=== PATIENT | male | born 1955 | race Caucasian/White ===

== ENCOUNTER 2018-09-28 16:31 | Inpatient (IN) | payer MEDICARE, MEDICAID ==
--- NOTE | 2018-09-28 16:46 | ED Physician Chart ---
ED Chief Complaint/HPI - Patient Information Date Seen:: 09/28/18 Time Seen:: 16:25 Chief Complaint:: Dysphagia History of Present Illness:: onset x 3 days of dysphagia; no report of trauma, H/As, S/T, neck pain, C/P, cough, SOB, Abd. Pain, A/N/V/D/C, fever, chills, or urinary s/s; pt presents for G-Tube Insertion/Placement Historian:: Patient, EMS Review:: Nurse's Note Reviewed, Old Chart Reviewed, EMS run form Reviewed ED Review of Systems - Review of Systems General/Constitutional: No fever, No chills, No weight loss, Weakness, No diaphoresis, No edema, No loss of appetite Skin: No skin lesions, No rash, No bruising Head: No headache, No light-headedness Eyes: No loss of vision, No pain, No diplopia ENT: No earache, No nasal drainage, No sore throat, No tinnitus Neck: No neck pain, No swelling, No thyromegaly, No stiffness, No mass noted Cardio Vascular: No chest pain, No palpitations, No PND, No orthopnea, No edema Pulmonary: No SOB, No cough, No sputum, No wheezing GI: No nausea, No vomiting, No diarrhea, No pain, No melena, No hematochezia, No constipation, No hematemesis G/U: No dysuria, No frequency, No hematuria, No nacturia Musculoskeletal: No bone or joint pain, No back pain, No muscle pain Endocrine: No polyuria, No polydipsia Psychiatric: No prior psych history, No depression, No anxiety, No suicidal ideation, No homicidal ideation, No auditory hallucination, No visual hallucination Hematopoietic: No bruising, No lymphadenopathy Allergic/Immuno: No urticaria, No angioedema Neurological: No syncope, No focal symptoms, Weakness, No paresthesia, No headache, No seizure, No dizziness, No confusion, No vertigo ED Past Medical History - Past Medical History Obtainable: Yes Past Medical History: HTN, CAD, CHF, Asthma/COPD, CVA/TIA, Dyslipidemia, PUD/ GERD, Arthritis Family History: HTN Social History: Non Smoker, No Alcohol, No Drug Use, Single, Care Facility Surgical History: None Psychiatricy History: None Medication: Reviewed Family Medical History - Family Member Mother History Unknown: Yes ED Physical Exam - Physical Examination General/Constitutional: Awake, Well-developed, well-nourished, Alert, No distress, GCS 15, Non-toxic appearing, Ambulatory Head: Atraumatic Eyes: Lids, conjuctiva normal, PERRL, EOMI Skin: Nl inspection, No rash, No skin lesions, No ecchymosis, Well hydrated, No lymphadenopathy ENMT: External ears, nose nl, TM canals nl, Nasal exam nl, Lips, teeth, gums nl , Oropharynx nl, Tonsils nl Neck: Nontender, Full ROM w/o pain, No JVD, No nuchal rigidity, No bruit, No mass, No stridor Respiratory: Nl effort/Exclusion, Clear to Auscultation, No Wheeze/Rhonchi/Rales Cardio Vascular: RRR, No murmur, gallop, rubs, NL S1 S2, Carotid/Femoral/Distal pulses equal bilaterally GI: No tenderness/rebounding/guarding, No organomegaly, No hernia, Normal BS's, Nondistended, No mass/bruits, No McBurney tenderness : No CVA tenderness Extremities: No tenderness or effusion, Full ROM, normal strength in all extremities, No edema, Normal digits & nails Neuro/Psych: Alert/oriented, DTR's symmetric, Normal sensory exam, Normal motor strength, Judgement/insight normal, Mood normal, Normal gait Other Neuro/Psych comments:: + Quadriplegia Misc: Normal back, No paraspinal tenderness ED Labs/Radiology/EKG Results - Lab Results Comments:: Reviewed - Radiology Results Comments:: CXR: CM; NAD - EKG Interpretations EKG Time:: 17:40 Rate & Rhythm: 81; NSR Comments:: T- Wave Inversions; non-specific st-t changes ED Septic Shock - . Is Septic Shock (SBP<90, OR Lactate>4 mmol\L) present?: No ED Reassessment (Disposition) - Reassessment Reassessment Condition:: Improved - Diagnosis Diagnosis:: Dx: Dysphagia; Leukocytosis; Sepsis - Aftercare/Follow up Instructions Aftercare/Follow-Up Instructions:: Counseled pt regarding lab results/diagnosis & need follow up, Counseled pt & family regarding lab results/diagnosis & need follow up - Patient Disposition Discharge/Transfer:: Acute Care w/in this hosp Accepting Physician:: Dr. Hagen Time Called:: 1829 Time Responded:: 18:30 Admitted to:: Med/Surg Spoke to:: Dr. Hagen Admitting Medical Physician:: Dr. Hagen Condition at Disposition:: Stable, Improved
[2018-09-28] MEDS ORDERED: Sodium Chloride 0.9% 1,000 ML IV ONE (17:35)
[2018-09-28 18:08] LABS: % BASOPHILS 0.4 % (0.0-2.0); % EOSINOPHILS 2.4 % (0.0-5.0); % LYMPHOCYTES 15.4 % (20.0-50.0); % NEUTROPHILS 72.8 % (40.0-80.0); BASOPHILE ABSOLUTE 0.1 Th/cumm (0-0.2); EOSINOPHILE ABSOLUTE 0.4 Th/cmm (0.1-0.4); HEMATOCRIT 40.8 % (41.0-60); HEMOGLOBIN 13.6 gm/dL (12-16); LYMPHOCYTE ABSOLUTE 2.3 Th/cmm (1.5-3.0); MEAN CELL VOLUME 85.4 fl (80-99); MEAN CORPUSCULAR HEMOGLOBIN 28.5 pg (26.0-30.0); MEAN CORPUSCULAR HGB CONC 33.4 pg (28.0-36.0); MEAN PLATELET VOLUME 7.4 fl; MONOCYTE ABSOLUTE 1.4 Th/cmm (0.3-1.0); PLATELET COUNT 322 Th/cmm (150-400); RED BLOOD COUNT 4.77 Mil/cmm (4.30-5.70); RED CELL DISTRIBUTION WIDTH 12.3 % (11.5-20.0); WHITE BLOOD COUNT 15.2 Th/cmm (4.8-10.8)
[2018-09-28 18:26] LABS: INR 0.99 (0.5-1.4); PROTHROMBIN TIME (TEST) 10.3 SECONDS (9.5-11.5)
[2018-09-28 18:27] LABS: ALBUMIN 3.8 gm/dL (4.2-5.5); ALKALINE PHOSPHATASE 142 U/L (34-104); AMYLASE SERUM 26 U/L (29-103); ANION GAP 15.8 (7.0-16.0); BILIRUBIN,TOTAL 0.3 mg/dL (0.3-1.0); BUN - UREA NITROGEN 7 mg/dL (7-25); CALCIUM SERUM 9.6 mg/dL (8.6-10.3); CARBON DIOXIDE 22.7 mEq/L (21.0-31.0); CHLORIDE 105 mEq/L (98-107); CHOLESTEROL 159 mg/dL (<200); CREATININE - SERUM 0.6 mg/dL (0.7-1.3); CREATININE KINASE 45 U/L (30-223); GFR AFRICAN-AMERICAN > 60.0 ml/min (>90); GFR NON AFRICAN-AMERICAN > 60.0 ml/min; GLUCOSE 96 mg/dL (70-105); HDL -HIGH DENSITY LIPOPROTEIN 37 mg/dL (23-92); LIPASE 17 U/L (11-82); POTASSIUM SERUM 3.5 mEq/L (3.5-5.1); SGOT 19 U/L (13-39); SGPT/ALT 19 U/L (7-52); SODIUM SERUM 140 mEq/L (136-145); TOTAL PROTEIN,SERUM 7.8 gm/dL (6.0-8.3); TRIGLYCERIDES 273 mg/dL (<150)
[2018-09-28] MEDS ORDERED: Albuterol Nebulizer 2.5mg/3mL HHN PRN (19:02)
[2018-09-28] MEDS ORDERED: Maalox 30 mL Cup PO PRN (19:02)
[2018-09-28] MEDS ORDERED: Ipratropium Neb 0.5 mg/2.5 mL UD HHN PRN (19:02)
[2018-09-28] MEDS ORDERED: cefTRIAXone 1 GM in Sodium Chloride 0.9% 50 ML IV ONE (19:15)
[2018-09-28] MEDS ORDERED: Non-Formulary Item 1 EA (Acetaminophen [Tylenol] 650 MG) PO PRN (19:27)
[2018-09-28] MEDS: INSULIN ASPART, RECOMBINANT 100 UNITS/ML SUBQ SCH (21:00)
[2018-09-28] MEDS: D5-0.9%NS 1,000 ML IV SCH (21:05)
[2018-09-28 21:54] VITALS: BP 149/69
[2018-09-28] MEDS: Levofloxacin 500mg/100mL 500 MG/100 ML BAG IV SCH (22:03)
[2018-09-29] MEDS: Hydrocodone/APAP 5mg/325mg Tab PO PRN ×3 (05:22→16:47)
[2018-09-29] MEDS: INSULIN ASPART, RECOMBINANT 100 UNITS/ML SUBQ SCH ×4 (08:04→20:31)
--- NOTE | 2018-09-29 08:55 | Diagnostic Imaging Report ---
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 Increased left basal lung markings are noted. There is no focal consolidation or pleural effusions The heart is normal in size. Degenerative changes of the spine are noted. IMPRESSION: Increased left basal lung markings which may be due to atelectasis, however, faint infiltrate cannot be excluded. Clinical correlation is needed.
[2018-09-29] MEDS: Multivitamin w/ Minerals Tab PO SCH (08:58)
[2018-09-29] MEDS: Polyvinyl Alcohol Ophth Soln 15 mL Bottle EACH EYE SCH (09:37)
[2018-09-29] MEDS: D5-0.9%NS 1,000 ML IV SCH (11:13)
--- NOTE | 2018-09-29 17:12 | History and Physical ---
History of Present Illness - HPI Chief Complaint: dysphagia HPI: This is a 63-year old male who is a [facility] resident who has a 1 day history of difficulty swallowing. Vital Signs: Last Vital Signs Temp 97.0 F 09/29/18 15:24 Pulse 71 09/29/18 15:24 Resp 18 09/29/18 15:24 BP 118/58 09/29/18 15:24 Pulse Ox 96 09/29/18 15:24 Past Medical History Other History: HTN, CAD, CHF, Asthma/COPD, CVA/TIA, Dyslipidemia, PUD/GERD, Arthritis Family Medical History - Family Member Mother History Unknown: Yes Social History Smoke: No Alcohol: None Drugs: None Lives: Snf - Medications Home Medications: Home Medication Medication Instructions Recorded Type Acetaminophen [Tylenol] 650 mg PO Q6H PRN 09/28/18 History Benazepril HCl 5 mg PO DAILY 09/28/18 History Dextran 70/Hypromellose 1 each OP BID 09/28/18 History [Artificial Tears] Docusate Sodium [Colace] 100 mg PO DAILY 09/28/18 History Glipizide 10 mg PO DAILY 09/28/18 History Hydrocodone/APAP 5mg/325mg [[place] 1 tab PO Q8H PRN 09/28/18 History 5mg/325mg] Multivitamin w/ Minerals 1 tab PO DAILY 09/28/18 History [Theragran M] Niacin 500 mg PO HS 09/28/18 History Phenytoin Sodium Extended 300 mg PO BID 09/28/18 History [Extended Phenytoin Sodium] Pregabalin [Lyrica] 50 mg PO TID 09/28/18 History Simvastatin [Zocor] 40 mg PO HS 09/28/18 History fentaNYL 25 mcg/hr [Duragesic 25 25 mcg TD Q72HR 09/28/18 History mcg/hr Tdm Patch] metFORMIN [Glucophage] 850 mg PO BID 09/28/18 History - Allergies Allergies/Adverse Reactions: Allergies Allergy/AdvReac Type Severity Reaction Status Date / Time No Known Allergies Allergy Verified 09/28/18 16:41 Review of Systems - Review of Systems Constitutional: Report: No Significant Eyes: Report: No Significant Respiratory: Report: No Significant Cardiovascular: Report: No Significant Gastrointestinal: Report: No Significant Neurological: Report: No Significant Physical Exam - Physical Exam HEENT: Report: Ears Nose Throat within normal limits Neck: Report: Within normal limits Cardiovascular Systems: Report: +s1/s2 noted, Regular, Rate and Rhythm Respiratory: Report: Breath Sounds are within normal limits, Clear to Auscultation of lung boland Abdomen: Report: Non-tender to palpation Extremities: Report: Non-tender to palpation. Skin: Report: Color of skin is within normal limits, Warm, Dry Neuro/Psych: Report: Mood affect is within normal limits, A+Ox3 - Lab Results All Lab Results last 24 hours: Laboratory Results - last 24 hr 09/28/18 09/28/18 09/28/18 17:58 17:58 17:58 WBC 15.2 H RBC 4.77 Hgb 13.6 Hct 40.8 L MCV 85.4 MCH 28.5 MCHC Differential 33.4 RDW 12.3 Plt Count 322 MPV 7.4 Neutrophils % 72.8 Lymphocytes % 15.4 L Monocytes % 9.0 Eosinophils % 2.4 Basophils % 0.4 PT 10.3 INR 0.99 Sodium 140 Potassium 3.5 Chloride 105 Carbon Dioxide 22.7 Anion Gap 15.8 BUN 7 Creatinine 0.6 L Est GFR ( Amer) > 60.0 Est GFR (Non-Af Amer) > 60.0 BUN/Creatinine Ratio 11.7 Glucose 96 POC Glucose Whole Bld Lactic Acid Calcium 9.6 Total Bilirubin 0.3 AST 19 ALT 19 Alkaline Phosphatase 142 H Creatine Kinase 45 Troponin I B-Natriuretic Peptide Total Protein 7.8 Albumin 3.8 L Globulin 4.0 Albumin/Globulin Ratio 1.0 Triglycerides 273 H Cholesterol 159 LDL Cholesterol Direct 89 HDL Cholesterol 37 Amylase 26 L Lipase 17 09/28/1818 09/28/18 17:58 17:58 17:58 WBC RBC Hgb Hct MCV MCH MCHC Differential RDW Plt Count MPV Neutrophils % Lymphocytes % Monocytes % Eosinophils % Basophils % PT INR Sodium Potassium Chloride Carbon Dioxide Anion Gap BUN Creatinine Est GFR ( Amer) Est GFR (Non-Af Amer) BUN/Creatinine Ratio Glucose POC Glucose Whole Bld Lactic Acid 0.92 Calcium Total Bilirubin AST ALT Alkaline Phosphatase Creatine Kinase Troponin I 0.01 B-Natriuretic Peptide 33.3 Total Protein Albumin Globulin Albumin/Globulin Ratio Triglycerides Cholesterol LDL Cholesterol Direct HDL Cholesterol Amylase Lipase 09/28/18 09/29/18 09/29/18 20:27 07:36 11:15 WBC RBC Hgb Hct MCV MCH MCHC Differential RDW Plt Count MPV Neutrophils % Lymphocytes % Monocytes % Eosinophils % Basophils % PT INR Sodium Potassium Chloride Carbon Dioxide Anion Gap BUN Creatinine Est GFR ( Amer) Est GFR (Non-Af Amer) BUN/Creatinine Ratio Glucose POC Glucose 101 115 H 144 H Whole Bld Lactic Acid Calcium Total Bilirubin AST ALT Alkaline Phosphatase Creatine Kinase Troponin I B-Natriuretic Peptide Total Protein Albumin Globulin Albumin/Globulin Ratio Triglycerides Cholesterol LDL Cholesterol Direct HDL Cholesterol Amylase Lipase 09/29/18 16:57 WBC RBC Hgb Hct MCV MCH MCHC Differential RDW Plt Count MPV Neutrophils % Lymphocytes % Monocytes % Eosinophils % Basophils % PT INR Sodium Potassium Chloride Carbon Dioxide Anion Gap BUN Creatinine Est GFR ( Amer) Est GFR (Non-Af Amer) BUN/Creatinine Ratio Glucose POC Glucose 117 H Whole Bld Lactic Acid Calcium Total Bilirubin AST ALT Alkaline Phosphatase Creatine Kinase Troponin I B-Natriuretic Peptide Total Protein Albumin Globulin Albumin/Globulin Ratio Triglycerides Cholesterol LDL Cholesterol Direct HDL Cholesterol Amylase Lipase - Assessment Assessment: Current Active Problems Problem Status Onset POOR ORAL INTAKE AND CHRONIC LEG PAIN Acute leukocytosis failure to thrive leukocytosis HTN CAD CHF asthma history of cva Dyslipidemia GERD Arthritis - Plan Plan: gi consult empiric ivabx ivf for hydration follow up labs in am aspiration precautions continue current plan of care
--- NOTE | 2018-09-29 18:09 | Consultation ---
DATE OF CONSULTATION: 09/29/2018 REQUESTING PHYSICIAN: Dr. Hagen. REASON FOR CONSULTATION: Failure to thrive. Thank you for asking me to see this patient in consultation. HISTORY OF PRESENT ILLNESS: This is a 63-year-old male who is mentally challenged and possibly history of old CVA, who presents with 3 days of dysphagia and failure to thrive. The patient has a history of quadriplegia. On that background, we have been consulted for whether or not the patient would possibly need a G-tube placement at some point. He currently is not on a diet and there are little to very few records as to what has been going on with this patient for the last few months. Per nursing report, the patient does has the ability to swallow; however, no formal swallow evaluation has been performed just as of yet. REVIEW OF SYSTEMS: Unable to obtain given the patient's current state. PAST MEDICAL HISTORY: Quadriplegia and brain injury. MEDICATIONS: Have been Reviewed. SOCIAL HISTORY: No tobacco or alcohol. FAMILY HISTORY: Noncontributory for GI disease. PHYSICAL EXAMINATION: VITAL SIGNS: Temperature of 97.1, pulse of 72, respiratory rate of 18, and blood pressure is 111/52. GENERAL: He is in no acute distress. HEENT: Normocephalic, atraumatic. PERRL positive. LUNGS: Clear bilaterally. No wheezes, rales, or rhonchi. HEART: Regular rate and rhythm, normal S1, S2. ABDOMEN: Soft, obese, nontender. EXTREMITIES: Show no lower extremity edema. He does have slightly contracted arms. NEUROLOGIC: Unable to assess. PSYCHOLOGICAL: Alert. LABORATORY DATA: White count of 15,000, hemoglobin of 13.6. Sodium is 140, potassium 3.5, AST of 19, ALT of 19. IMAGING: Chest x-ray showed increased left basal lung markings, which may be due to atelectasis. ASSESSMENT AND PLAN: This is a 63-year-old male with history of quadriplegia and likely brain injury who presents with failure to thrive. 1. Failure to thrive. 2. Decreased p.o. intake. 3. Protein calorie malnutrition. 4. Question of necessity for G-tube. We will recommend a bedside swallow evaluation as well as a calorie count to determine if patient is not meeting necessary goals and see how he is doing after 1 or 2 days to decide if G-tube would be appropriate for placement. Continue with supportive care and medical conditions per Dr. Hagen. Thank you for allowing us to participate in this patient's care. Further recommendations to follow as we get to know more about this patient. JOB# [id number]
[2018-09-29] MEDS: Levofloxacin 500mg/100mL 500 MG/100 ML BAG IV SCH (20:24)
[2018-09-29] MEDS ORDERED: Hydrocodone/APAP 5mg/325mg Tab PO ONE (21:18)
[2018-09-30] MEDS: D5-0.9%NS 1,000 ML IV SCH ×2 (01:11→15:17)
[2018-09-30 05:05] LABS: % BASOPHILS 0.5 % (0.0-2.0); % EOSINOPHILS 5.2 % (0.0-5.0); % LYMPHOCYTES 21.2 % (20.0-50.0); % MONOCYTES 13.1 % (2.0-10.0); BASOPHILE ABSOLUTE 0.1 Th/cumm (0-0.2); EOSINOPHILE ABSOLUTE 0.7 Th/cmm (0.1-0.4); LYMPHOCYTE ABSOLUTE 2.7 Th/cmm (1.5-3.0); MEAN CELL VOLUME 86.4 fl (80-99); MEAN CORPUSCULAR HEMOGLOBIN 28.8 pg (26.0-30.0); MEAN CORPUSCULAR HGB CONC 33.4 pg (28.0-36.0); MEAN PLATELET VOLUME 7.6 fl; MONOCYTE ABSOLUTE 1.7 Th/cmm (0.3-1.0); NEUTROPHILE ABSOLUTE 7.7 Th/cmm (1.8-8.0); PLATELET COUNT 268 Th/cmm (150-400); RED BLOOD COUNT 4.52 Mil/cmm (4.30-5.70); RED CELL DISTRIBUTION WIDTH 12.4 % (11.5-20.0); WHITE BLOOD COUNT 12.9 Th/cmm (4.8-10.8)
[2018-09-30] MEDS: INSULIN ASPART, RECOMBINANT 100 UNITS/ML SUBQ SCH ×4 (06:55→20:55)
[2018-09-30 07:55] LABS: ANION GAP 13.6 (7.0-16.0); BUN - UREA NITROGEN 8 mg/dL (7-25); CARBON DIOXIDE 24.7 mEq/L (21.0-31.0); CHLORIDE 107 mEq/L (98-107); CREATININE - SERUM 0.6 mg/dL (0.7-1.3); GFR AFRICAN-AMERICAN > 60.0 ml/min (>90); GFR NON AFRICAN-AMERICAN > 60.0 ml/min; GLUCOSE 140 mg/dL (70-105); POTASSIUM SERUM 3.3 mEq/L (3.5-5.1); SODIUM SERUM 142 mEq/L (136-145)
[2018-09-30] MEDS: Hydrocodone/APAP 5mg/325mg Tab PO PRN (08:13)
[2018-09-30] MEDS: Multivitamin w/ Minerals Tab PO SCH (08:15)
[2018-09-30] MEDS: Polyvinyl Alcohol Ophth Soln 15 mL Bottle EACH EYE SCH ×2 (08:23→17:37)
[2018-09-30] MEDS ORDERED: fentaNYL 25 mcg/hr Tdm Patch TD SCH (09:00)
--- NOTE | 2018-09-30 09:10 | Diagnostic Imaging Report ---
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 Increased interstitial lung markings are noted with bilateral trace effusions versus pleural thickening. No focal consolidation. Suboptimal lung markings are noted. Cardiomegaly is noted. IMPRESSION: Increased interstitial lung markings, nonspecific. No evidence of kyle CHF Bilateral pleural thickening versus trace effusions. No focal consolidation identified Cardiomegaly.
[2018-09-30] MEDS ORDERED: Potassium Chloride 20 mEq ER Tab PO ONE (13:08)
--- NOTE | 2018-09-30 14:04 | GI Progress Note ---
Subjective - Review of Systems Service Date: 09/30/18 Events since last encounter: No events overnight; passed swallow evaluation, no calorie count done yet Objective - Results Result Diagrams: 09/30/18 04:45 09/30/18 06:26 Recent Labs: Laboratory Last Values WBC 12.9 Th/cmm (4.8-10.8) H 09/30/18 04:45 RBC 4.52 Mil/cmm (4.30-5.70) 09/30/18 04:45 Hgb 13.0 gm/dL (12-16) 09/30/18 04:45 Hct 39.0 % (41.0-60) L 09/30/18 04:45 MCV 86.4 fl (80-99) 09/30/18 04:45 MCH 28.8 pg (26.0-30.0) 09/30/18 04:45 MCHC Differential 33.4 pg (28.0-36.0) 09/30/18 04:45 RDW 12.4 % (11.5-20.0) 09/30/18 04:45 Plt Count 268 Th/cmm (150-400) 09/30/18 04:45 MPV 7.6 fl 09/30/18 04:45 Neutrophils % 60.0 % (40.0-80.0) 09/30/18 04:45 Lymphocytes % 21.2 % (20.0-50.0) 09/30/18 04:45 Monocytes % 13.1 % (2.0-10.0) H 09/30/18 04:45 Eosinophils % 5.2 % (0.0-5.0) H 09/30/18 04:45 Basophils % 0.5 % (0.0-2.0) 09/30/18 04:45 PT 10.3 SECONDS (9.5-11.5) 09/28/18 17:58 INR 0.99 (0.5-1.4) 09/28/18 17:58 Sodium 142 mEq/L (136-145) 09/30/18 06:26 Potassium 3.3 mEq/L (3.5-5.1) L 09/30/18 06:26 Chloride 107 mEq/L (98-107) 09/30/18 06:26 Carbon Dioxide 24.7 mEq/L (21.0-31.0) 09/30/18 06:26 Anion Gap 13.6 (7.0-16.0) 09/30/18 06:26 BUN 8 mg/dL (7-25) 09/30/18 06:26 Creatinine 0.6 mg/dL (0.7-1.3) L 09/30/18 06:26 Est GFR ( Amer) > 60.0 ml/min (>90) 09/30/18 06:26 Est GFR (Non-Af Amer) > 60.0 ml/min 09/30/18 06:26 BUN/Creatinine Ratio 13.3 09/30/18 06:26 Glucose 140 mg/dL (70-105) H 09/30/18 06:26 POC Glucose 239 MG/DL (70 - 105) H 09/30/18 12:08 Whole Bld Lactic Acid 0.92 mmol/L (0.60-1.99) 09/28/18 17:58 Calcium 9.0 mg/dL (8.6-10.3) 09/30/18 06:26 Total Bilirubin 0.3 mg/dL (0.3-1.0) 09/28/18 17:58 AST 19 U/L (13-39) 09/28/18 17:58 ALT 19 U/L (7-52) 09/28/18 17:58 Alkaline Phosphatase 142 U/L (34-104) H 09/28/18 17:58 Ammonia 39 umol/L (16-53) 09/30/18 06:26 Creatine Kinase 45 U/L (30-223) 09/28/18 17:58 Troponin I 0.01 ng/mL (0.01-0.05) 09/28/18 17:58 B-Natriuretic Peptide 10.1 pg/mL (5.0-100.0) 09/30/18 06:26 Total Protein 7.8 gm/dL (6.0-8.3) 09/28/18 17:58 Albumin 3.8 gm/dL (4.2-5.5) L 09/28/18 17:58 Globulin 4.0 gm/dL 09/28/18 17:58 Albumin/Globulin Ratio 1.0 (1.0-1.8) 09/28/18 17:58 Triglycerides 273 mg/dL (<150) H 09/28/18 17:58 Cholesterol 159 mg/dL (<200) 09/28/18 17:58 LDL Cholesterol Direct 89 mg/dL (75-193) 09/28/18 17:58 HDL Cholesterol 37 mg/dL (23-92) 18 17:58 Amylase 26 U/L (29-103) L 09/28/18 17:58 Lipase 17 U/L (11-82) 09/28/18 17:58 - Physical Exam Vitals and I&O: Vital Signs Temp 97.0 F 09/30/18 11:59 Pulse 65 09/30/18 11:59 Resp 18 09/30/18 11:59 BP 100/59 09/30/18 11:59 Pulse Ox 97 09/30/18 11:59 Intake & Output 09/29/18 09/30/18 09/30/18 18:59 06:59 18:59 Intake Total 1000 2021.333 Balance 1000 1.333 Weight (lbs) 99.564 kg Intake: Intake, IV Amount 1000 1541.333 D5-0.9%Ns 1,000 ml @ 80 1000 1441.333 mls/hr IV .[id number] [facility] Rx #:[id number] Levofloxacin 500mg/100mL 100 500 mg In 100 ml @ 100 mls/hr IV Q24HR [facility] Rx#: [id number] Oral 480 Other: # Voids 3 Stool Characteristics Soft Brown Weight Source Bedscale Active Medications: Current Medications Acetaminophen (Tylenol) 650 mg PO Q4H PRN PRN Reason: Mild Pain 1-3/ Fever above 101 Stop: 11/27/18 19:01 Acetaminophen/Hydrocodone Bitart ([place] 5mg/325mg) 1 tab PO Q8H PRN PRN Reason: PAIN Stop: 11/27/18 19:26 Last Admin: 09/30/18 08:13 Dose: 1 tab Al Hydrox/Mg Hydrox/Simethicone (Maalox) 30 ml PO Q6H PRN PRN Reason: Dyspepsia Stop: 11/27/18 19:01 Albuterol Sulfate (Albuterol 2.5mg/3ml Neb Ud) 2.5 mg HHN Q2HRT PRN PRN Reason: Shortness of Breath or Wheeze Stop: 11/27/18 19:01 Last Admin: 09/29/18 23:35 Dose: 2.5 mg Artificial Tears (Artificial Tears Ophth Soln) 1 drop EACH EYE BID [facility] Stop: 11/28/18 08:59 Last Admin: 09/30/18 08:23 Dose: 1 drop Benazepril HCl (Lotensin) 5 mg PO DAILY [facility] Stop: 11/28/18 08:59 Last Admin: 09/30/18 08:14 Dose: 5 mg Docusate Sodium (Colace) 100 mg PO DAILY [facility] Stop: 11/28/18 08:59 Last Admin: 09/30/18 08:15 Dose: 100 mg Fentanyl (Duragesic 25 Mcg/Hr Tdm Patch) 1 patch TD Q72HR [facility]; Protocol Stop: 11/29/18 08:59 Last Admin: 09/30/18 08:15 Dose: 1 patch Dextrose/Sodium Chloride (D5-0.9%Ns) 1,000 mls @ 80 mls/hr IV .[id number] [facility] Stop: 11/27/18 19:14 Last Infusion: 09/30/18 06:42 Dose: 80 mls/hr Levofloxacin (Levaquin Pb) 500 mg in 100 mls @ 100 mls/hr IV Q24HR [facility] Stop: 11/27/18 19:59 Last Infusion: 09/29/18 23:24 Dose: Infused Insulin Aspart (Novolog) 0 units SUBQ ACHS [facility]; Protocol Stop: 11/27/18 20:59 Last Admin: 09/30/18 12:10 Dose: 4 unit Ipratropium [place] (Atrovent Neb 0.5mg/2.5ml) 0.5 mg HHN Q2HRT PRN PRN Reason: Shortness of Breath or Wheeze Stop: 11/27/18 19:01 Last Admin: 09/29/18 23:35 Dose: 0.5 mg Niacin (Vitamin B3) 500 mg PO HS [facility] Stop: 11/27/18 20:59 Last Admin: 09/29/18 22:21 Dose: Not Given Ondansetron HCl (Zofran) 4 mg IV Q8H PRN PRN Reason: Nausea / Vomiting Stop: 11/27/18 19:01 Phenytoin (Dilantin) 300 mg PO BID [facility] Stop: 11/28/18 08:59 Last Admin: 09/30/18 08:14 Dose: 300 mg Pregabalin (Lyrica) 50 mg PO TID [facility] Stop: 11/27/18 20:59 Last Admin: 09/30/18 08:15 Dose: 50 mg Simvastatin (Zocor) 40 mg PO HS [facility]; Protocol Stop: 11/27/18 20:59 Last Admin: 09/29/18 20:25 Dose: 40 mg General: Mild distress HEENT: EOMI Neck: Supple, JVD, Thyromegaly Cardiovascular: Regular rate, Normal S1, Normal S2 Abdomen: Bowel sounds, Distended, Obese Assessment/Plan - Problem List Patient Problems: All Active Problems POOR ORAL INTAKE AND CHRONIC LEG PAIN (Acute) - Assessment Assessment: 1. Poor PO intake 2. Psych issue 3. ?Dysphagia -Passed swallow test, follow up dietary recomendations -Calorie count to determine needs -Recommend boost and ensure -Will see if patient requires PEG tube or not
--- NOTE | 2018-09-30 16:46 | Internal Medicine Prog Note ---
Internal Medicine Subjective - Subjective Service Date: 09/30/18 Patient seen and examined:: with staff Patient is:: awake Per staff patient has:: tolerating meds Internal Medicine Objective - Results Result Diagrams: 09/30/18 04:45 09/30/18 06:26 Recent Labs: Laboratory Last Values WBC 12.9 Th/cmm (4.8-10.8) H 09/30/18 04:45 RBC 4.52 Mil/cmm (4.30-5.70) 09/30/18 04:45 Hgb 13.0 gm/dL (12-16) 09/30/18 04:45 Hct 39.0 % (41.0-60) L 09/30/18 04:45 MCV 86.4 fl (80-99) 09/30/18 04:45 MCH 28.8 pg (26.0-30.0) 09/30/18 04:45 MCHC Differential 33.4 pg (28.0-36.0) 09/30/18 04:45 RDW 12.4 % (11.5-20.0) 09/30/18 04:45 Plt Count 268 Th/cmm (150-400) 09/30/18 04:45 MPV 7.6 fl 09/30/18 04:45 Neutrophils % 60.0 % (40.0-80.0) 09/30/18 04:45 Lymphocytes % 21.2 % (20.0-50.0) 09/30/18 04:45 Monocytes % 13.1 % (2.0-10.0) H 09/30/18 04:45 Eosinophils % 5.2 % (0.0-5.0) H 09/30/18 04:45 Basophils % 0.5 % (0.0-2.0) 09/30/18 04:45 PT 10.3 SECONDS (9.5-11.5) 09/28/18 17:58 INR 0.99 (0.5-1.4) 09/28/18 17:58 Sodium 142 mEq/L (136-145) 09/30/18 06:26 Potassium 3.3 mEq/L (3.5-5.1) L 09/30/18 06:26 Chloride 107 mEq/L (98-107) 09/30/18 06:26 Carbon Dioxide 24.7 mEq/L (21.0-31.0) 09/30/18 06:26 Anion Gap 13.6 (7.0-16.0) 09/30/18 06:26 BUN 8 mg/dL (7-25) 09/30/18 06:26 Creatinine 0.6 mg/dL (0.7-1.3) L 09/30/18 06:26 Est GFR ( Amer) > 60.0 ml/min (>90) 09/30/18 06:26 Est GFR (Non-Af Amer) > 60.0 ml/min 09/30/18 06:26 BUN/Creatinine Ratio 13.3 09/30/18 06:26 Glucose 140 mg/dL (70-105) H 09/30/18 06:26 POC Glucose 239 MG/DL (70 - 105) H 09/30/18 12:08 Whole Bld Lactic Acid 0.92 mmol/L (0.60-1.99) 09/28/18 17:58 Calcium 9.0 mg/dL (8.6-10.3) 09/30/18 06:26 Total Bilirubin 0.3 mg/dL (0.3-1.0) 09/28/18 17:58 AST 19 U/L (13-39) 09/28/18 17:58 ALT 19 U/L (7-52) 09/28/18 17:58 Alkaline Phosphatase 142 U/L (34-104) H 09/28/18 17:58 Ammonia 39 umol/L (16-53) 09/30/18 06:26 Creatine Kinase 45 U/L (30-223) 09/28/18 17:58 Troponin I 0.01 ng/mL (0.01-0.05) 09/28/18 17:58 B-Natriuretic Peptide 10.1 pg/mL (5.0-100.0) 09/30/18 06:26 Total Protein 7.8 gm/dL (6.0-8.3) 09/28/18 17:58 Albumin 3.8 gm/dL (4.2-5.5) L 09/28/18 17:58 Globulin 4.0 gm/dL 09/28/18 17:58 Albumin/Globulin Ratio 1.0 (1.0-1.8) 09/28/18 17:58 Triglycerides 273 mg/dL (<150) H 18 17:58 Cholesterol 159 mg/dL (<200) 09/28/18 17:58 LDL Cholesterol Direct 89 mg/dL (75-193) 09/28/18 17:58 HDL Cholesterol 37 mg/dL (23-92) 09/28/18 17:58 Amylase 26 U/L (29-103) L 09/28/18 17:58 Lipase 17 U/L (11-82) 09/28/18 17:58 - Physical Exam Vitals and I&O: Vital Signs Temp 98.0 F 09/30/18 15:42 Pulse 66 09/30/18 15:42 Resp 18 09/30/18 15:42 BP 113/59 09/30/18 15:42 Pulse Ox 98 09/30/18 15:42 Intake & Output 09/29/18 09/30/18 09/30/18 18:59 06:59 18:59 Intake Total 1000 2021.333 558.667 Balance 1000 2021.333 558.667 Weight (lbs) 219 lb 8 oz Intake: Intake, IV Amount 1000 1541.333 558.667 D5-0.9%Ns 1,000 ml @ 80 1000 1441.333 558.667 mls/hr IV .[id number] [facility] Rx #:[id number] Levofloxacin 500mg/100mL 100 500 mg In 100 ml @ 100 mls/hr IV Q24HR [facility] Rx#: [id number] Oral 480 Other: # Voids 3 Stool Characteristics Soft Brown Weight Source Bedscale Active Medications: Current Medications Acetaminophen (Tylenol) 650 mg PO Q4H PRN PRN Reason: Mild Pain 1-3/ Fever above 101 Stop: 11/27/18 19:01 Acetaminophen/Hydrocodone Bitart ([place] 5mg/325mg) 1 tab PO Q8H PRN PRN Reason: PAIN Stop: 11/27/18 19:26 Last Admin: 09/30/18 08:13 Dose: 1 tab Al Hydrox/Mg Hydrox/Simethicone (Maalox) 30 ml PO Q6H PRN PRN Reason: Dyspepsia Stop: 11/27/18 19:01 Albuterol Sulfate (Albuterol 2.5mg/3ml Neb Ud) 2.5 mg HHN Q2HRT PRN PRN Reason: Shortness of Breath or Wheeze Stop: 11/27/18 19:01 Last Admin: 09/29/18 23:35 Dose: 2.5 mg Artificial Tears (Artificial Tears Ophth Soln) 1 drop EACH EYE BID [facility] Stop: 11/28/18 08:59 Last Admin: 09/30/18 08:23 Dose: 1 drop Benazepril HCl (Lotensin) 5 mg PO DAILY [facility] Stop: 11/28/18 08:59 Last Admin: 09/30/18 08:14 Dose: 5 mg Docusate Sodium (Colace) 100 mg PO DAILY [facility] Stop: 11/28/18 08:59 Last Admin: 09/30/18 08:15 Dose: 100 mg Fentanyl (Duragesic 25 Mcg/Hr Tdm Patch) 1 patch TD Q72HR [facility]; Protocol Stop: 11/29/18 08:59 Last Admin: 09/30/18 08:15 Dose: 1 patch Dextrose/Sodium Chloride (D5-0.9%Ns) 1,000 mls @ 80 mls/hr IV .[id number] [facility] Stop: 11/27/18 19:14 Last Admin: 09/30/18 15:17 Dose: 80 mls/hr Levofloxacin (Levaquin Pb) 500 mg in 100 mls @ 100 mls/hr IV Q24HR [facility] Stop: 11/27/18 19:59 Last Infusion: 09/29/18 23:24 Dose: Infused Insulin Aspart (Novolog) 0 units SUBQ ACHS [facility]; Protocol Stop: 11/27/18 20:59 Last Admin: 09/30/18 12:10 Dose: 4 unit Ipratropium Lamar (Atrovent Neb 0.5mg/2.5ml) 0.5 mg HHN Q2HRT PRN PRN Reason: Shortness of Breath or Wheeze Stop: 11/27/18 19:01 Last Admin: 09/29/18 23:35 Dose: 0.5 mg Niacin (Vitamin B3) 500 mg PO HS [facility] Stop: 11/27/18 20:59 Last Admin: 09/29/18 22:21 Dose: Not Given Ondansetron HCl (Zofran) 4 mg IV Q8H PRN PRN Reason: Nausea / Vomiting Stop: 02/15/19 19:01 Phenytoin (Dilantin) 300 mg PO BID [facility] Stop: 11/28/18 08:59 Last Admin: 09/30/18 08:14 Dose: 300 mg Pregabalin (Lyrica) 50 mg PO TID [facility] Stop: 11/27/18 20:59 Last Admin: 09/30/18 15:05 Dose: 50 mg Simvastatin (Zocor) 40 mg PO HS [facility]; Protocol Stop: 11/27/18 20:59 Last Admin: 09/29/18 20:25 Dose: 40 mg General: alert HEENT: NC/AT, PERRLA Neck: Supple Lungs: CTAB Cardiovascular: RRR, Normal S1, Normal S2, without murmur Abdomen: soft, non-tender, non-distended, positive bowel sound Extremities: excoriation Neurological: alert Internal Medicine Assmt/Plan - Assessment Assessment: Current Active Problems Problem Status Onset POOR ORAL INTAKE AND CHRONIC LEG PAIN Acute leukocytosis failure to thrive leukocytosis HTN CAD CHF asthma history of cva Dyslipidemia GERD Arthritis - Plan Plan: empiric ivabx ivf for hydration follow up labs in am aspiration precautions continue current plan of care Nutritional Asmnt/Malnutr-PDOC - Dietary Evaluation Malnutrition Findings (Please click <Entered> for more info): Nutritional Asmnt/Malnutrition Start: 09/29/18 14: 55 Text: Status: Complete Freq: Protocol: Document 09/29/18 14:56 [email or web address] (Rec: 09/29/18 15:01 [id number]) Nutritional Asmnt/Malnutrition Patient General Information Nutritional Screening Moderate Risk Diagnosis FAILURE TO THRIVE, LUEKOCYTOSIS, DYSPHAGIA Pertinent Medical Hx/Surgical Hx HTN, CAD, CHF, ASTHMA, COPD, CVA, DISLIPIDEMIA, GERD ARTHRITIS, FAMILY HX OF HTN Subjective Information AAOX1 NO DISTRESS PER NURSING NOTE, RESPIRATIONS UNLABORED, AWAITING GI CONSULT FOR POSS GT Current Diet Order/ Nutrition Support NPO Pertinent Medications ZOFRAN, VIT B3, NOVOLOG, MAALOX, ALBUTEROL, COLACE Pertinent Labs BEDSIDE GLUCOSE 144, 115, 101 WBC 15.2 Nutritional Hx/Data Height 5 ft 5 in Height (Calculated Centimeters) 165.1 Current Weight (lbs) 200 lb Weight (Calculated Kilograms) 90.7 Weight (Calculated Grams) 18349.5 [place] Body Weight 136 % [place] Body Weight 147 Body Mass Index (BMI) 33.3 Weight Status Obese GI Symptoms Difficult in: Chewing Swallowing Food Allergies No Skin Integrity/Comment: JEANIE SCORE: 13 Estimated Nutritional Goals BEE in Kcals: Adj wt of IBW Calories/Kcals/Kg 3503-4841 Kcals Calculated 25-30 Protein: Adj wt of IBW Protein g/k-69 Protein Calculated 0.8-1 Fluid: ml PER MD Nutritional Problem 1. Problem Problem inadequate energy intake Etiology NPO status Signs/Symptoms: awaiting GI consult for possible GT Intervention/Recommendation Comments INADEQUATE ENERGY INTAKE R/T NPO STATUS AEB AWAITING GI CONSULT FOR POSSIBLE GT Expected Outcomes/Goals Expected Outcomes/Goals WILL MONITOR FOR EITHER GTF OR PO INTAKE, WEIGHT, LABS TRENDING TOWARD WNL
[2018-09-30 16:56] LABS: URINE SOURCE CATH
[2018-09-30 17:00] LABS: URINE BILIRUBIN NEGATIVE (NEGATIVE); URINE BLOOD SMALL (NEGATIVE); URINE GLUCOSE (UA) NEGATIVE (NEGATIVE); URINE KETONE NEGATIVE (NEGATIVE); URINE LEUKOCYTE ESTERASE NEGATIVE (NEGATIVE); URINE MICROSCOPIC INDICATED? YES; URINE NITRATE NEGATIVE (NEGATIVE); URINE PH 5.5 (4.6 - 8.0); URINE PROTEIN TRACE mg/dL (NEGATIVE); URINE UROBILINOGEN 0.2 E.U./dL (0.2 - 1.0)
[2018-09-30 17:09] LABS: URINE COLOR YELLOW
[2018-09-30 17:10] LABS: URINE CLARITY HAZY (CLEAR); URINE RBC NONE SEEN /hpf (0-5); URINE WBC 0-2 /hpf (0-5)
[2018-09-30 17:11] LABS: URINE BACTERIA OCCASIONAL /hpf (NONE SEEN); URINE EPITHELIAL CELLS NONE SEEN /lpf (FEW)
[2018-09-30] MEDS: Levofloxacin 500mg/100mL 500 MG/100 ML BAG IV SCH (22:02)
[2018-10-01] MEDS: INSULIN ASPART, RECOMBINANT 100 UNITS/ML SUBQ SCH ×2 (06:41→11:45)
[2018-10-01 07:14] LABS: % BASOPHILS 0.6 % (0.0-2.0); % EOSINOPHILS 4.8 % (0.0-5.0); % LYMPHOCYTES 20.3 % (20.0-50.0); % MONOCYTES 12.6 % (2.0-10.0); % NEUTROPHILS 61.7 % (40.0-80.0); BASOPHILE ABSOLUTE 0.1 Th/cumm (0-0.2); EOSINOPHILE ABSOLUTE 0.6 Th/cmm (0.1-0.4); HEMATOCRIT 35.4 % (41.0-60); HEMOGLOBIN 12.1 gm/dL (12-16); LYMPHOCYTE ABSOLUTE 2.6 Th/cmm (1.5-3.0); MEAN CELL VOLUME 86.1 fl (80-99); MEAN CORPUSCULAR HEMOGLOBIN 29.3 pg (26.0-30.0); MONOCYTE ABSOLUTE 1.6 Th/cmm (0.3-1.0); NEUTROPHILE ABSOLUTE 7.8 Th/cmm (1.8-8.0); PLATELET COUNT 276 Th/cmm (150-400); RED BLOOD COUNT 4.11 Mil/cmm (4.30-5.70); RED CELL DISTRIBUTION WIDTH 12.4 % (11.5-20.0); WHITE BLOOD COUNT 12.7 Th/cmm (4.8-10.8)
--- NOTE | 2018-10-01 08:01 | GI Progress Note ---
Subjective - Review of Systems Service Date: 10/01/18 Events since last encounter: Patient passed swallow evaluation, but not eating very much Objective - Results Result Diagrams: 10/01/18 06:10 09/30/18 06:26 Recent Labs: Laboratory Last Values WBC 12.7 Th/cmm (4.8-10.8) H 10/01/18 06:10 RBC 4.11 Mil/cmm (4.30-5.70) L 10/01/18 06:10 Hgb 12.1 gm/dL (12-16) 10/01/18 06:10 Hct 35.4 % (41.0-60) L 10/01/18 06:10 MCV 86.1 fl (80-99) 10/01/18 06:10 MCH 29.3 pg (26.0-30.0) 10/01/18 06:10 MCHC Differential 34.0 pg (28.0-36.0) 10/01/18 06:10 RDW 12.4 % (11.5-20.0) 10/01/18 06:10 Plt Count 276 Th/cmm (150-400) 10/01/18 06:10 MPV 8.0 fl 10/01/18 06:10 Neutrophils % 61.7 % (40.0-80.0) 10/01/18 06:10 Lymphocytes % 20.3 % (20.0-50.0) 10/01/18 06:10 Monocytes % 12.6 % (2.0-10.0) H 10/01/18 06:10 Eosinophils % 4.8 % (0.0-5.0) 10/01/18 06:10 Basophils % 0.6 % (0.0-2.0) 10/01/18 06:10 PT 10.3 SECONDS (9.5-11.5) 09/28/18 17:58 INR 0.99 (0.5-1.4) 09/28/18 17:58 Sodium 142 mEq/L (136-145) 09/30/18 06:26 Potassium 3.3 mEq/L (3.5-5.1) L 09/30/18 06:26 Chloride 107 mEq/L (98-107) 09/30/18 06:26 Carbon Dioxide 24.7 mEq/L (21.0-31.0) 09/30/18 06:26 Anion Gap 13.6 (7.0-16.0) 09/30/18 06:26 BUN 8 mg/dL (7-25) 09/30/18 06:26 Creatinine 0.6 mg/dL (0.7-1.3) L 09/30/18 06:26 Est GFR ( Amer) > 60.0 ml/min (>90) 09/30/18 06:26 Est GFR (Non-Af Amer) > 60.0 ml/min 09/30/18 06:26 BUN/Creatinine Ratio 13.3 09/30/18 06:26 Glucose 140 mg/dL (70-105) H 09/30/18 06:26 POC Glucose 150 MG/DL (70 - 105) H 10/01/18 06:22 Whole Bld Lactic Acid 0.92 mmol/L (0.60-1.99) 09/28/18 17:58 Calcium 9.0 mg/dL (8.6-10.3) 09/30/18 06:26 Total Bilirubin 0.3 mg/dL (0.3-1.0) 09/28/18 17:58 AST 19 U/L (13-39) 09/28/18 17:58 ALT 19 U/L (7-52) 09/28/18 17:58 Alkaline Phosphatase 142 U/L (34-104) H 09/28/18 17:58 Ammonia 39 umol/L (16-53) 09/30/18 06:26 Creatine Kinase 45 U/L (30-223) 09/28/18 17:58 Troponin I 0.01 ng/mL (0.01-0.05) 09/28/18 17:58 B-Natriuretic Peptide 46.9 pg/mL (5.0-100.0) 10/01/18 06:10 Total Protein 7.8 gm/dL (6.0-8.3) 09/28/18 17:58 Albumin 3.8 gm/dL (4.2-5.5) L 09/28/18 17:58 Globulin 4.0 gm/dL 09/28/18 17:58 Albumin/Globulin Ratio 1.0 (1.0-1.8) 09/28/18 17:58 Triglycerides 273 mg/dL (<150) H 18 17:58 Cholesterol 159 mg/dL (<200) 18 17:58 LDL Cholesterol Direct 89 mg/dL (75-193) 18 17:58 HDL Cholesterol 37 mg/dL (23-92) 18 17:58 Amylase 26 U/L (29-103) L 18 17:58 Lipase 17 U/L (11-82) 09/28/18 17:58 Urine Source CATH 09/30/18 16:50 Urine Color YELLOW 09/30/18 16:50 Urine Clarity HAZY (CLEAR) 09/30/18 16:50 Urine pH 5.5 (4.6 - 8.0) 09/30/18 16:50 Ur Specific [place] >= 1.030 (1.005-1.030) 09/30/18 16:50 Urine Protein TRACE mg/dL (NEGATIVE) 09/30/18 16:50 Urine Glucose (UA) NEGATIVE mg/dL (NEGATIVE) 09/30/18 16:50 Urine Ketones NEGATIVE mg/dL (NEGATIVE) 09/30/18 16:50 Urine Blood SMALL (NEGATIVE) H 09/30/18 16:50 Urine Nitrate NEGATIVE (NEGATIVE) 09/30/18 16:50 Urine Bilirubin NEGATIVE (NEGATIVE) 09/30/18 16:50 Urine Urobilinogen 0.2 E.U./dL (0.2 - 1.0) 09/30/18 16:50 Ur Leukocyte Esterase NEGATIVE (NEGATIVE) 09/30/18 16:50 Urine RBC NONE SEEN /hpf (0-5) 09/30/18 16:50 Urine WBC 0-2 /hpf (0-5) 09/30/18 16:50 Ur Epithelial Cells NONE SEEN /lpf (FEW) 09/30/18 16:50 Urine Bacteria OCCASIONAL /hpf (NONE SEEN) 09/30/18 16:50 - Physical Exam Vitals and I&O: Vital Signs Temp 97.7 F 10/01/18 00:00 Pulse 78 10/01/18 00:00 Resp 20 10/01/18 02:53 BP 121/69 10/01/18 00:00 Pulse Ox 96 10/01/18 00:00 Intake & Output 09/30/18 10/01/18 10/01/18 18:59 06:59 18:59 Intake Total 558.667 150 Balance 558.667 150 Weight (lbs) 99.79 kg Intake: Intake, IV Amount 558.667 D5-0.9%Ns 1,000 ml @ 80 558.667 mls/hr IV .[id number] [facility] Rx #:[id number] Oral 150 Other: # Voids 3 # Bowel Movements 1 Weight Source Bedscale Active Medications: Current Medications Acetaminophen (Tylenol) 650 mg PO Q4H PRN PRN Reason: Mild Pain 1-3/ Fever above 101 Stop: 11/27/18 19:01 Acetaminophen/Hydrocodone Bitart (Fortine 5mg/325mg) 1 tab PO Q8H PRN PRN Reason: PAIN Stop: 11/27/18 19:26 Last Admin: 09/30/18 08:13 Dose: 1 tab Al Hydrox/Mg Hydrox/Simethicone (Maalox) 30 ml PO Q6H PRN PRN Reason: Dyspepsia Stop: 11/27/18 19:01 Albuterol Sulfate (Albuterol 2.5mg/3ml Neb Ud) 2.5 mg HHN Q2HRT PRN PRN Reason: Shortness of Breath or Wheeze Stop: 11/27/18 19:01 Last Admin: 09/29/18 23:35 Dose: 2.5 mg Artificial Tears (Artificial Tears Ophth Soln) 1 drop EACH EYE BID [facility] Stop: 11/28/18 08:59 Last Admin: 09/30/18 17:37 Dose: 1 drop Benazepril HCl (Lotensin) 5 mg PO DAILY [facility] Stop: 11/28/18 08:59 Last Admin: 09/30/18 08:14 Dose: 5 mg Docusate Sodium (Colace) 100 mg PO DAILY [facility] Stop: 11/28/18 08:59 Last Admin: 09/30/18 08:15 Dose: 100 mg Fentanyl (Duragesic 25 Mcg/Hr Tdm Patch) 1 patch TD Q72HR [facility]; Protocol Stop: 11/29/18 08:59 Last Admin: 09/30/18 08:15 Dose: 1 patch Dextrose/Sodium Chloride (D5-0.9%Ns) 1,000 mls @ 80 mls/hr IV .[id number] [facility] Stop: 11/27/18 19:14 Last Admin: 09/30/18 15:17 Dose: 80 mls/hr Levofloxacin (Levaquin Pb) 500 mg in 100 mls @ 100 mls/hr IV Q24HR [facility] Stop: 11/27/18 19:59 Last Admin: 09/30/18 22:02 Dose: 100 mls/hr Insulin Aspart (Novolog) 0 units SUBQ ACHS [facility]; Protocol Stop: 11/27/18 20:59 Last Admin: 10/01/18 06:41 Dose: Not Given Ipratropium [place]us (Atrovent Neb 0.5mg/2.5ml) 0.5 mg HHN Q2HRT PRN PRN Reason: Shortness of Breath or Wheeze Stop: 11/27/18 19:01 Last Admin: 09/29/18 23:35 Dose: 0.5 mg Niacin (Vitamin B3) 500 mg PO [facility] Stop: 11/27/18 20:59 Last Admin: 09/30/18 20:55 Dose: Not Given Ondansetron HCl (Zofran) 4 mg IV Q8H PRN PRN Reason: Nausea / Vomiting Stop: 11/27/18 19:01 Phenytoin (Dilantin) 300 mg PO BID [facility] Stop: 11/28/18 08:59 Last Admin: 09/30/18 17:37 Dose: 300 mg Pregabalin (Lyrica) 50 mg PO TID [facility] Stop: 11/27/18 20:59 Last Admin: 09/30/18 20:54 Dose: 50 mg Simvastatin (Zocor) 40 mg PO HS [facility]; Protocol Stop: 11/27/18 20:59 Last Admin: 09/30/18 20:55 Dose: 40 mg General: Mild distress HEENT: EOMI Neck: Supple, JVD, Thyromegaly Cardiovascular: Regular rate, Normal S1, Normal S2 Abdomen: Bowel sounds, Distended, Obese Assessment/Plan - Problem List Patient Problems: All Active Problems POOR ORAL INTAKE AND CHRONIC LEG PAIN (Acute) - Assessment Assessment: 1. Poor PO intake 2. Psych issue 3. ?Dysphagia -Passed swallow test, follow up dietary recomendations -Calorie count to determine needs -Recommend boost and ensure -Will see if patient requires PEG tube ; will follow up percentage of his meals and possibly PEG tube placement Friday
[2018-10-01 08:17] LABS: ANION GAP 11.8 (7.0-16.0); BUN - UREA NITROGEN 9 mg/dL (7-25); CALCIUM SERUM 8.8 mg/dL (8.6-10.3); CARBON DIOXIDE 24.8 mEq/L (21.0-31.0); CHLORIDE 107 mEq/L (98-107); CREATININE - SERUM 0.7 mg/dL (0.7-1.3); GFR AFRICAN-AMERICAN > 60.0 ml/min (>90); GFR NON AFRICAN-AMERICAN > 60.0 ml/min; GLUCOSE 159 mg/dL (70-105); POTASSIUM SERUM 3.6 mEq/L (3.5-5.1); SODIUM SERUM 140 mEq/L (136-145)
[2018-10-01] MEDS: Hydrocodone/APAP 5mg/325mg Tab PO PRN (08:35)
[2018-10-01] MEDS: Multivitamin w/ Minerals Tab PO SCH (08:36)
[2018-10-01] MEDS: Polyvinyl Alcohol Ophth Soln 15 mL Bottle EACH EYE SCH (08:38)
[2018-10-01 11:10] LABS: FOLIC ACID 11.5 ng/mL (>3.0)
--- NOTE | 2018-10-01 14:21 | Diagnostic Imaging Report ---
Portable chest x-ray HISTORY: Shortness of breath Compared with the prior exam of 09/30/2018, the heart is enlarged. Mild pleural reaction noted about the right left lower hemithoracic region suggesting small effusions. No focal pulmonary parenchymal processes. IMPRESSION: 1. Persistent cardiomegaly with evidence of small bilateral pleural effusions. No focal pulmonary parenchymal processes
--- NOTE | 2018-10-01 17:39 | Discharge Summary ---
DATE OF DISCHARGE: 10/01/2018 CHIEF COMPLAINT: Transferred for difficulty swallowing. HISTORY OF PRESENT ILLNESS: This is a 63-year-old male with history of stroke, asthma, COPD, CAD, congestive heart failure, hypertension, hypercholesterolemia, bedbound, admitted from nursing facility secondary to not eating, not taking his medication. The patient was admitted for further management of elevated white count as well. PHYSICAL EXAMINATION: VITAL SIGNS: Blood pressure 121/75, respirations 17, pulse 67 and temperature 97.0. GENERAL: Elderly male, appears chronically ill. NECK: Supple. No mass. LUNGS: Equal breath sounds, a few rhonchi. HEART: Regular rate and rhythm without appreciable murmurs. ABDOMEN: Soft, globular. EXTREMITIES: Positive excoriation. NEUROLOGIC: Limited. HOSPITAL COURSE: The patient was admitted to medical floor, continue IV hydration and start empiric IV antibiotic. White count was 17, 15 initially, this is improved. Electrolytes were corrected. The patient was seen by Speech for swallowing, able to swallow and take medication and diet ____ amount. The patient was seen by GI, they agreed that the patient may need a G-tube in the future but not currently. We will go ahead and discharge the patient. CONDITION ON DISCHARGE: Fair. OVERALL PROGNOSIS: Poor. DISCHARGE INSTRUCTIONS: The patient to continue current med regimen. We will ____ the patient accepting doctor at the long-term. JOB# [id number]
== END 2018-10-01 16:15 | disposition home or self-care (01) | DRG 871 ==
LOC: ER 16:31 → MSI 19:01
PROVIDERS: ADMIT Internal Medicine; ATTEND Internal Medicine
DX: A41.9 Sepsis, unspecified organism (principal); R53.2 Functional quadriplegia; E44.1 Mild protein-calorie malnutrition; R62.7 Adult failure to thrive; I25.10 Atherosclerotic heart disease of native coronary artery without angina pectoris; I50.9 Heart failure, unspecified; J44.9 Chronic obstructive pulmonary disease, unspecified; K21.9 Gastro-esophageal reflux disease without esophagitis; E78.5 Hyperlipidemia, unspecified; M19.90 Unspecified osteoarthritis, unspecified site; G89.29 Other chronic pain; I11.0 Hypertensive heart disease with heart failure; M54.9 Dorsalgia, unspecified; R13.10 Dysphagia, unspecified; Z82.49 Family history of ischemic heart disease and other diseases of the circulatory system; Z79.84 Long term (current) use of oral hypoglycemic drugs; Z86.73 Personal history of transient ischemic attack (TIA), and cerebral infarction without residual deficits; Z74.01 Bed confinement status; Z68.36 Body mass index [BMI] 36.0-36.9, adult
CPT/HCPCS: 36415-UA; 71045-TC; 80048-TC; 80053-TC; 80061-TC; 81001-TC; 82140-TC; 82150-TC; 82550-TC; 82607-90; 82746-90; 82948-90; 83605; 83690-TC; 83880-TC; 84484-TC; 85025-TC; 85610-TC; 87086-90; 90779; 93005; 94640; 94760; 96374; J0696; J1815; J1956; J7042; J7613; X3401; Z7610